=== PATIENT | male | born 1960 | race Two or more races ===

== ENCOUNTER 2023-03-11 17:53 | Emergency (ER) | payer MEDICARE, OTHER ==
[~2023-03-11] VITALS: Ht 184.2 cm; Wt 89.5 kg
[2023-03-11 18:50] LABS: COVID AG,FIA SOURCE NASAL SWAB
[2023-03-11 19:09] LABS: INFLUENZA TYPE A NEGATIVE FOR TYPE A (NEGATIVE); INFLUENZA TYPE B NEGATIVE FOR TYPE B (NEGATIVE); SARS-COV2 (COVID) ANTIGEN,FIA Negative (Negative)
[2023-03-11] MEDS ORDERED: AZIT-103 PO (19:29)
[2023-03-11] MEDS ORDERED: AZITHROMYCIN 500 MG TABLET PO ONE (19:30)
[2023-03-11 19:47] VITALS: BP 120/72; PULSE 72; RESP 18; TEMP 98.3
== END 2023-03-11 19:49 | disposition home or self-care (01) ==
LOC: EMS 17:53
DX: J40 Bronchitis, not specified as acute or chronic (principal); N18.6 End stage renal disease; Z99.2 Dependence on renal dialysis; Z88.0 Allergy status to penicillin; Z20.822 Contact with and (suspected) exposure to COVID-19
CPT/HCPCS: 99284; 71045; 87426; 87804; Q9967